=== PATIENT | male | born 1995 | race Caucasian/White ===

== ENCOUNTER 2025-04-21 22:36 | Emergency (ER) | payer OTHER, SELFPAY ==
[2025-04-22 00:13] VITALS: BP 129/93; PULSE 60; TEMP 37; O2SAT 97; BMI 51.7
--- NOTE | 2025-04-22 01:01 | ED.LOWEXI1 ---
HPI HPI - Extremity Injury (Lower) General Chief Complaint: Extremity Injury, Lower Stated Complaint: LEFT KNEE// CAN'T BEND IT/ CAN'T PUT WEIGHT ON IT Time Seen by Provider: 04/22/25 00:57 Source: patient Mode of arrival: walk-in Limitations: no limitations History of Present Illness HPI Narrative: describes walking down the steps. mis stepped and felt his left knee pop. Pain ever since. Hurts to bend the knee. Denies other injury or complaint Related Data Home Medications ?Medication ?Instructions ?Recorded ?Confirmed No Known Home Medications 04/22/25 04/22/25 Allergies Allergy/AdvReac Type Severity Reaction Status Date / Time No Known Drug Allergies Allergy Verified 04/22/25 00:19 Opioid HPI Opioid Management Most Recent Pain and Opioid Data: Last Pain Scale 9 Today, 00:13 Review of Systems ROS Status of ROS 10 or more systems reviewed and unremarkable except as noted in history and below PFSH PFSH Social History Little interest or pleasure in doing things: not at all Feeling down, depressed, or hopeless: not at all Exam Constitutional Vital Signs, click to edit/add: Last Vital Signs Temp 98.6 F 04/22/25 00:13 Pulse 60 04/22/25 00:13 Resp 18 04/22/25 00:13 BP 129/93 H 04/22/25 00:13 Pulse Ox 97 04/22/25 00:13 O2 Del Method Room Air 04/22/25 00:13 Common normals: no apparent distress, average body habitus, oriented x3, no limitations, healthy appearing, alert and well nourished [facility] Common normals: normocephalic and head/scalp atraumatic Respiratory Common normals: normal respiratory effort, no retractions, no use of accessory muscles and clear to auscultation bilaterally Cardio Common normals: regular rate, regular rhythm, S1 normal heart sound and S2 normal heart sound GI Common normals: Normal to inspection, nondistended, normoactive bowel sounds present and soft to palpation Extremity Common normals: normal to inspection Other: tenderness left knee lat joint space. No effusion or erythema Neuro Common normals: oriented x3, CN's II-XII intact bilaterally, moves all extremities and no focal motor deficits Psych Appearance: grossly normal Course Vital Signs Vital signs: Vital Signs Temperature 98.6 F 04/22/25 00:13 Pulse Rate 60 04/22/25 00:13 Respiratory Rate 18 04/22/25 00:13 Blood Pressure 129/93 H 04/22/25 00:13 Pulse Oximetry 97 04/22/25 00:13 Oxygen Delivery Method Room Air 04/22/25 00:13 Temperature 98.6 F 04/22/25 00:13 Pulse Rate 60 04/22/25 00:13 Respiratory Rate 18 04/22/25 00:13 Blood Pressure 129/93 H 04/22/25 00:13 Pulse Oximetry 97 04/22/25 00:13 Oxygen Delivery Method Room Air 04/22/25 00:13 MDM - Extremity Injury (Lower) MDM Narrative Medical decision making narrative: injured left knee walking down the stairs. did not fall but misstepped . Now has pain with flexion of the knee. knee is not swollen. xray neg for fracture. Patient informed he may have injured his meniscus and will need to follow up with orthopedics. Discharge Plan Discharge Chief Complaint: Extremity Injury, Lower Clinical Impression: Injury of knee, left Patient Disposition: Home, Self-Care Prescriptions / Home Meds: No Action No Known Home Medications Print Language: Algerian Instructions: Crutch Instructions (ED), Knee Pain (ED) Additional Instructions: follow up with orthopedics Dr Oneill next week Referrals: RAYMOND SHANNON [Primary Care Provider, Unknown] - 1 week
--- NOTE | 2025-04-22 02:22 | PC.NURSE ---
knee immobilizer applied, crutch training completed
== END 2025-04-22 02:24 | disposition home or self-care (01) ==
PROVIDERS: Emergency Provider Internal Medicine; PCP Family Medicine
DX: S89.92XA Unspecified injury of left lower leg, initial encounter (principal); X50.1XXA Overexertion from prolonged static or awkward postures, initial encounter
CPT/HCPCS: 73562; 99283